=== PATIENT | female | born 1975 | race Caucasian/White ===

== ENCOUNTER 2020-03-09 15:43 | Emergency (ER) | payer SELFPAY ==
[2020-03-09 15:45] VITALS: BP 119/72; PULSE 96; RESP 18; TEMP 36.3; O2SAT 98; BMI 25.9
--- NOTE | 2020-03-09 16:04 | EKG12_ITS ---
Test Reason : LEFT ARM PAIN Blood Pressure : / mmHG Vent. Rate : 084 BPM Atrial Rate : 084 BPM P-R Int : 104 ms QRS Dur : 088 ms QT Int : 378 ms P-R-T Axes : 072 053 064 degrees QTc Int : 446 ms Sinus rhythm with short OK Otherwise normal ECG Confirmed by ISABEL ADAMSON, ZI ([id number]), acquisition editor HÉCTOR BRITTON ([id number] on 03/14/2020 9:35:20 AM Referred By: Confirmed By:ZI HALL MD
--- NOTE | 2020-03-09 16:26 | ED.VIS.GEN ---
History of Present Illness Informant: Patient Onset: Days - 3 days ago Context: Sudden Onset Timing: Continuous Quality: Sharp Location: Left anterior ribs Current Severity: Severe Maximum Severity: Severe Worsened by: Movement and coughing Relieved by: Nothing Associated Symptoms: Denies Narrative: 44-year-old female who denies any significant past medical history but is a daily smoker presents to the emergency department complaining of left anterior rib pain. Pain started suddenly 3 days ago after a coughing episode. She has had continued pain. She has a history of rib fractures on this side years ago. She is not short of breath. She is not lightheaded or dizzy. Denies hemoptysis. Denies trauma. Denies abdominal pain nausea vomiting or diarrhea. Denies any recent travel or surgery or history of DVT or PE. She is not on control pills. She is no longer coughing she denies sore throat or fevers lost of taste or smell or myalgias. Denies sick contacts Prior similar symptoms: Yes Recent Illness/Hospitalization: No <Adan Weaver - Last Filed: 03/09/20 17:12> <Anton Fenton - Last Filed: 03/09/20 21:59> Chief Complaint: Chest Other Past Medical History Prior records reviewed: Yes Past Medical History: None Surgical History: hysterectomy Lives: With Family Smoking Status: Current every day smoker Alcohol: Occasional Drugs: None <Adan Weaver - Last Filed: 03/09/20 17:12> <Anton Fenton - Last Filed: 03/09/20 21:59> - Allergies and Home Meds Allergies/Adverse Reactions: Allergies codeine Allergy (Verified 03/09/20 15:44) Hives Morpholine Analogues Allergy (Verified 03/09/20 15:44) Hives Primary Care Physician: Alonso Larsen STORAGE SPECIALIST, STORAGE SPECIALIST-C [Primary Care Provider] - 3-5 Days Review of Systems All systems negative except as indicated General: Denies: Chills, Fever, Sweats Eyes: Denies: Visual changes - bilaterally, Diplopia ENT: Denies: Rhinorrhea, Sore throat Cardiovascular: Reports: - - Left rib pain. Denies: Chest pain, Palpitations Respiratory: Denies: Dyspnea, Cough, Dyspnea on exertion Gastrointestinal: Denies: Abdominal pain, Nausea, Vomiting, Diarrhea, Melena, Hematochezia Genitourinary: Denies: Dysuria, Hematuria, Frequency Musculoskeletal: Denies: Back pain, Extremity Pain Skin: Denies: Rash, Wounds Neurological: Denies: Headache, Weakness, Numbness <Adan Weaver - Last Filed: 03/09/20 17:12> Physical Exam Vital Signs/Narrative: Vital Signs Temp Pulse Resp BP Pulse Ox 03/09/20 15:45 97.4 F L 96 18 119/72 98 Inital Vital Signs reviewed: Yes General: Well nourished, Well developed, No Acute Distress Head: Normocephalic, Atraumatic Eyes: Perrl, EOMI ENT: Moist mucous membranes, No rhinorrhea Neck: Supple, Nontender Cardiovascular: Regular rate, Regular rhythm, No murmurs Respiratory: No distress, CTA bilaterally, Chest tenderness - Left anterior ribs are tender on palpation. Normal inspection of the skin without swelling or bruising. No deformities. No crepitus is palpated. Abdomen: Soft, Nontender, Nondistended, Normal bowel sounds Back: Nontender, Normal Inspection, - - Cervical lumbar and thoracic spine all nontender on palpation Extremities: Nontender, No edema. Negative for: Tenderness, Edema, Calf Tenderness Skin: Normal color, No rash Neurological: Alert, Oriented x3, Cranial nerves II-XII grossly intact, Normal Strength, Normal Sensation, Normal Gait Psychological: Normal affect, Normal Mood <Adan Weaver - Last Filed: 03/09/20 17:12> Diagnostic/Tx/Re-eval Impressions Ribs w/Chest X-Ray 03/09/20 16:34 IMPRESSION: RIBS: Normal x-ray examination of the ribs. CHEST: Normal x-ray examination of the chest. Electronically Signed: Magaly Schaefer MD at 16:51 EDT , Service support , 03/09/20 16:34 Xray Ribs [Ribs Uni Min 3V w/PA Chest] [RAD] Stat - EKG Initial EKG Interpretation: Sinus Rhythm, No Acute Injury Pattern Prior: No Prior - Medical Decision Making Patient was given a Percocet for pain. Chest x-ray with a left-sided rib series shows no acute findings. Patient was reassured. Patient has normal stable vital signs. They did obtain an EKG out in triage and her EKG showed sinus rhythm rate of [address] segment or T wave changes. Patient will be discharged home with a prescription for Lidoderm patch. She will continue to alternate Tylenol and ibuprofen. She was given return precautions and a primary care physician to follow-up with. <Adan Weaver - Last Filed: 03/09/20 17:12> - Medical Decision Making Agree with above assessment and plan by AAKASH. I did evaluate the patient. She is in no acute distress. Work-up did not reveal any significant abnormality. Will recommend Lidoderm patches. Symptomatic treatment at home. She is to follow-up with her PCP. Warning signs and symptoms for which to return are reviewed. She understands and is agreeable this plan. Patient discharged home in stable condition. <Anton Fenton - Last Filed: 03/09/20 21:59> ED Disposition <Adan Weaver - Last Filed: 03/09/20 17:12> <Anton Fenton - Last Filed: 03/09/20 21:59> - Plan for ED Patient: Disposition: Home or Assisted Living Diagnosis: Rib pain on left side Instructions: ED CHEST PAIN [place] Prescriptions: Lidocaine [Lidoderm Patch] 1 patch TOPICAL DAILY #5 patch Prescription Printed Referrals: Alonso Larsen STORAGE SPECIALIST, STORAGE SPECIALIST-C [Primary Care Provider] - 3-5 Days
[2020-03-09] MEDS: oxyCODONE 5 MG Tablet PO (16:30)
--- NOTE | 2020-03-09 16:34 | RAD_ITS ---
STUDY: X-RAY - UNILATERAL RIBS ( LEFT ) WITH CHEST REASON FOR EXAM: Female, 44 years old. LEFT RIB PAIN AFTER FALLING SYLVAIN TECHNIQUE - RIBS: 4 view(s) of the ribs. TECHNIQUE - CHEST: 1 view COMPARISON: None. FINDINGS - RIBS: Normal visualized ribs without a demonstrated fracture. FINDINGS - CHEST: The lungs are clear and expanded. There is no demonstrated pleural abnormality. Normal size heart. Normal mediastinum and elise. Normal visualized pulmonary arteries. Normal visualized aortic arch and descending thoracic aorta. Normal visualized thoracic spine. Normal visualized ribs, clavicles, and shoulders. There is no demonstrated abnormality of the visualized soft tissue structures of the upper abdomen. RAD/Ribs Uni Min 3V w/PA Chest IMPRESSION: RIBS: Normal x-ray examination of the ribs. CHEST: Normal x-ray examination of the chest. Electronically Signed: Magaly Schaefer MD at 16:51 EDT , Service support ,
[2020-03-09 17:38] VITALS: BP 110/69; PULSE 78; RESP 16; O2SAT 98
--- NOTE | 2020-03-09 17:39 | ED.RN ---
REVIEWED D/C INSTRUCTIONS, FOLLOW UP CARE, PRESCRIPTION, AND S/S THAT WOULD WARRANT A RETURN TO THE ED WITH PT. PT VERBALIZED AN UNDERSTANDING AND DENIES FURTHER QUESTIONS FOR THIS RN. PT SKIN P/W/D, RESP EVEN AND UNLABORED, PT A&O X 3, NO DISTRESS NOTED. PT AMBULATED OUT OF ED, GAIT STEADY.
== END 2020-03-09 17:42 | disposition home or self-care (01) ==
PROVIDERS: Emergency Provider Physician Assistant Medical; PCP Nurse Practitioner Family
DX: R07.81 Pleurodynia (principal); F17.200 Nicotine dependence, unspecified, uncomplicated
CPT/HCPCS: 71101; 93005; 99282

== ENCOUNTER 2020-11-21 18:43 | Emergency (ER) | payer BC, SELFPAY ==
[2020-11-21 18:44] VITALS: BP 138/85; PULSE 88; RESP 18; TEMP 37.1; O2SAT 98; BMI 27.1
--- NOTE | 2020-11-21 18:57 | EX.ED.DYSGE1 ---
HPI History of Present Illness Chief Complaint: Constipation Narrative Narrative: Patient presents with constipation. She is 7 days after laparoscopic cholecystectomy. She has some abdominal distention but her pain is significantly improved. She has no fever or chills she has no back pain. She has tried some stool softeners and enemas. No urinary symptoms. No nausea or vomiting. PFSH PFSH Home Medications lidocaine 1 patch TOPICAL DAILY #5 patch 03/09/20 [Rx Last Taken Unknown] Allergy/AdvReac Type Severity Reaction Status Date / Time codeine Allergy Hives Verified 03/09/20 15:44 Morpholine Analogues Allergy Hives Verified 03/09/20 15:44 morphine AdvReac Other Verified 11/21/20 18:46 Surgical History (Updated 11/21/20 @ 18:49 by Lindsey Smith) History of cholecystectomy Social History Smoking Status: Current every day smoker tobacco type: cigarettes ROS ROS ED ROS Narrative Past medical history: Reviewed, includes recent cholecystectomy Medications: Reviewed Social history: Noncontributory Review of systems: All systems negative except as indicated General: No fever Cardiovascular: No chest pain Respiratory: No shortness of breath or cough Gastrointestinal: Constipation as in HPI, otherwise minimal abdominal pain. No nausea or vomiting. Genitourinary: No dysuria Musculoskeletal: Denies myalgias no difficulty with ambulation Skin: No rash Neurological: No memory loss, confusion or any focal weakness Hematologic: No easy bleeding or easy bruising EXAM Physical Exam Narrative Exam Narrative: Physical exam General: Appears somewhat uncomfortable ENT: Moist mucous membranes Neck: Supple, Nontender, No lymphadenopathy Cardiovascular: Regular rate, Regular rhythm Respiratory: No distress, CTA bilaterally Abdomen: Soft, slightly distended but she does have bowel sounds. Minimal tenderness on palpation. The incisions from laparoscopy are clean dry and intact without any signs of infection. Back: Nontender, Normal Inspection. Negative for: CVA tenderness Extremities: Nontender, No edema Skin: Normal color, No rash Neurological: Alert, Normal Strength, Normal Sensation Psychological: Normal affect Const Vital Signs: 11/21/20 18:44 Temperature 98.7 F Temperature Source Temporal Pulse Rate 88 Respiratory Rate 18 Blood Pressure 138/85 H Blood Pressure Mean 102 Pulse Ox 98 Oxygen Delivery Method Room Air MDM MDM MDM Narrative Medical decision making narrative: Patient is found to have constipation on x-ray, she will be treated with GoLYTELY for home. Radiography Diagnostic Testing: KUB interpreted by emergency doctor shows nonspecific bowel gas pattern, no evidence of bowel obstruction. There is however quite a bit of constipation. Discharge Plan Triage Chief Complaint: Constipation ED Provider: Rickey Varela Dx/Rx/DC Orders Clinical Impression: Constipation Instructions: ED Constipation (Adult) Prescriptions: No Action lidocaine 1 PATCH patch 1 patch topical DAILY Qty: 5 RF: 0 Primary Care Provider: Alonso Larsen NP Referrals: Alonso Larsen CUSTOMER EXPERIENCE STRATEGIST, CUSTOMER EXPERIENCE STRATEGIST-C [Primary Care Provider] - 2 Days Disposition Disposition: Home, self care
--- NOTE | 2020-11-21 19:08 | RAD_ITS ---
HISTORY: constipation EXAMINATION/TECHNIQUE: XR Abdomen 1 View: COMPARISON: None FINDINGS: LINES AND TUBES: None. BOWEL GAS PATTERN: Non-obstructive. Moderate colonic fecal retention. FREE AIR: Not assessed on a single supine view. ORGANOMEGALY: Not seen. CALCIFICATIONS: No abnormal calcifications observed. LOWER CHEST: No acute pathology. BONES AND SOFT TISSUES: No acute pathology. Multiple surgical clips project over the right inguinal region. RAD/Abdomen Single View IMPRESSION: Non-obstructive bowel gas pattern. Moderate colonic fecal retention. at 1932 Reported and signed by: Blade Crum MD Electronically Signed: Blade rCum MD at 19:31 EDT Tel , Service support ,
[2020-11-21] MEDS: Electrolyte Solution/Peg's 4000 ML PO (19:51)
[2020-11-21 19:52] VITALS: RESP 16
== END 2020-11-21 19:54 | disposition home or self-care (01) ==
PROVIDERS: Emergency Provider Emergency Medicine; PCP Nurse Practitioner Family
DX: K59.00 Constipation, unspecified (principal); F17.210 Nicotine dependence, cigarettes, uncomplicated; Z90.49 Acquired absence of other specified parts of digestive tract
CPT/HCPCS: 74018; 99282

== ENCOUNTER 2021-02-12 06:58 | Emergency (ER) | payer BC, SELFPAY ==
[2021-02-12 06:59] VITALS: BP 115/72; PULSE 78; RESP 16; TEMP 36.2; O2SAT 100; BMI 26.4
--- NOTE | 2021-02-12 07:12 | EDS_ITS ---
HPI History of Present Illness Chief Complaint: Flank Pain Detail of Chief Complaint: Right lower abdominal and flank pain that started yesterday Informant: patient Narrative Narrative: Patient presents to the emergency department complaint of right lower abdominal pain that radiates to the right flank. Patient states the pain came on suddenly. Patient states that she started having blood in her urine. She denies dysuria although feels some pressure in her lower abdomen when she urinates. She is never had symptoms like this before. She has had some mild nausea but no vomiting. She denies any fevers. Patient otherwise has no si gnificant medical history. Prior similar symptoms: No PFSH PFSH Home Medications NK 02/12/21 [History Last Taken Unknown] phenazopyridine [Pyridium] 200 mg PO TID #10 tab 02/12/21 [Rx Last Taken Unknown] sulfamethoxazole-trimethoprim 1 tab PO BID #14 tablet 02/12/21 [Rx Last Taken Unknown] Allergy/AdvReac Type Severity Reaction Status Date / Time codeine Allergy Hives Verified 02/12/21 06:58 Morpholine Analogues Allergy Hives Verified 02/12/21 06:58 morphine AdvReac Other Verified 02/12/21 06:58 Surgical History (Updated 02/12/21 @ 07:00 by Bri Negron) History of cholecystectomy History of hysterectomy Social History Smoking Status: Current every day smoker tobacco type: cigarettes ROS ROS ED Constitutional Constitutional ED: Reports systems reviewed and no addt'l complaints, except as documented; Denies body ache(s), change in weight or chills Eyes Eyes: Denies acute decrease in peripheral vision, change in vision, double vision or loss of vision ENT ENT ED: Reports none; Denies ear pain, lip swelling, loss taste/smell, neck pain, otalgia or sore throat Cardiovascular Cardiovascular: Reports none; Denies abdominal pain, chest pain with activity, leg edema, lightheadedness, palpitations, rapid heart rate or syncope Respiratory/Chest Respiratory/Chest: Reports none; Denies change in mental status, dry cough, dyspnea, hemoptysis, shortness of breath at rest or shortness of breath with exertion Gastrointestinal Gastrointestinal: Reports none, abdominal pain and nausea; Denies change in stool character, diarrhea, hematemesis, hematochezia, melena, rectal bleeding or vomiting Genitourinary Genitourinary ED: Reports none and hematuria; Denies abdominal discomfort, anuria, dysuria, genital pain or polyuria Musculoskeletal Musculoskeletal: Reports none; Denies arthralgias, back pain, difficulty walking, extremity pain, muscle weakness or myalgias Integumentary Reports none; Denies abscess or rash Neurologic Neurologic: Reports none; Denies abnormal gait, confusion, focal weakness, frequent falls, headache(s), loss of vision, numbness, paresthesias, radicular pain, vertigo or weakness Psychiatric Psychiatric: Reports systems reviewed and no addt'l complaints, except as documented and none; Denies behavioral changes, confusion, difficulty concentrating, hallucinations, suicidal ideation, tactile hallucinations or visual hallucinations Endocrine Endocrinology: Denies none, cold intolerance, excessive sweating, fatigue or heat intolerance Hematologic/Lymphatic Hematologic/Lymphatic: Reports none; Denies anemia, easy bleeding or easy bruising Allergic/Immunologic Allergic/Immunologic ED: Denies as per HPI, none, lip swelling, mouth swelling, throat swelling, tongue swelling or hives EXAM Physical Exam Const Vital Signs: 02/12/21 06:59 Temperature 97.1 F L Temperature Source Temporal Pulse Rate 78 Respiratory Rate 16 Blood Pressure 115/72 Blood Pressure Mean 86 Pulse Ox 100 Oxygen Delivery Method Room Air Positive well nourished and well developed General Appearance ED: well developed and NAD HEENT Reports TM's clear and moist mucous membranes normocephalic and atraumatic; Negative for trauma or tenderness Tympanic Membrane ED: Yes TM's clear Eyes PERRL and EOMs intact bilaterally General Eye ED: Negative for pale conjunctiva or scleral icterus Neck no lymphadenopathy, supple and no JVD General: Negative for tenderness Chest Wall inspection of chest normal and palpation of chest normal Chest: Negative for tenderness Resp normal respiratory effort and clear to auscultation bilaterally Effort and Inspection: Negative for respiratory distress or pain with movement Auscultation: Negative for rhonchi, wheezes or diminished lung sounds Cardio regular rate, regular rhythm, S1 normal heart sound, S2 normal heart sound and no murmurs Peripheral Pulses: pulses 2+ throughout GI soft to palpation, non-distended and no masses GI Narrative: Patient has tenderness palpation over right lower quadrant with some guarding. She got tenderness over the suprapubic region as well. There is no rebound, rigidity, or peritoneal signs. No masses palpated. Mild CVA tenderness on the right. Palpation: tender and guarding Back/Spine no CVA tenderness and no thoracic nor lumbar tenderness Extremity normal to inspection General Extremety ED: Negative for edema General Extremity: Negative for edema Neuro oriented x3, CN's II-XII intact bilaterally, no sensory deficits noted and gait normal Sensorium / Orientation: awake, alert, oriented to person, oriented to place and oriented to time Motor Exam: strength 5/5 throughout and strength abnormal Psych mental status grossly normal Skin no rashes or lesions noted and no wounds MDM MDM MDM Narrative Medical decision making narrative: Patient was treated with Toradol on arrival and she had good pain relief with that her currently rates her pain about a 5 out of 10. Patient believes she may have passed a small kidney stone when she last urinated. On CT there was evidence of some mild right ureteral distention and some thickening of the bladder wall which may be consistent with recently passed kidney stones or UTI. Patient will be treated with Bactrim and Pyridium. She will stick ibuprofen or Tylenol for discomfort. She is advised to return if worsening pain, fever, vomiting, or condition should worsen anyway. Patient to follow-up with primary care physician in 3 to 5 days. Lab Data Attestation: I reviewed the patient's lab results. Labs: Laboratory Results - last 24 hr 02/12/21 02/12/21 02/12/21 07:00 07:00 07:30 WBC 13.6 H RBC 4.70 Hgb 13.7 Hct 42.8 MCV 91.1 MCH 29.1 MCHC 32.0 RDW Std Deviation 47.0 H RDW Coeff of Dino 13.9 Plt Count 303 MPV 10.6 Immature Gran % (Auto) 0.400 Neut % (Auto) 73.0 H Lymph % (Auto) 18.2 L [place] % (Auto) 6.6 Eos % (Auto) 1.4 Baso % (Auto) 0.4 Absolute Neuts (auto) 10.0 H Absolute Lymphs (auto) 2.48 Nucleated RBC % 0 Sodium 137 Potassium 4.9 Chloride 108 H Carbon Dioxide 25.0 Anion Gap 4 L BUN 14 Creatinine 0.64 Estim Creat Clear Calc 97.78 Est GFR (MDRD) Af Amer 128 Est GFR (MDRD) Non-Af 106 BUN/Creatinine Ratio 21.9 H Glucose 91 Calcium 9.3 Urine Color Yellow Urine Clarity Cloudy Urine pH 7.0 Ur Specific [place] 1.010 Urine Protein 30 H Urine Glucose (UA) Normal Urine Ketones Negative Urine Occult Blood 250 H Urine Nitrite Negative Urine Bilirubin Negative Urine Urobilinogen Normal Ur Leukocyte Esterase 500 H Urine RBC 5-10 SEEN Urine WBC 10-25 SEEN Ur Squamous Epith Cells 0-5 SEEN Urine Bacteria 2+ Urine Mucus 0 SEEN Radiography Diagnostic Testing: Radiology Impression Abdomen/Pelvis CT 02/12/21 07:12 IMPRESSION: Mild right ureter distention without obstructing stone (consider recently passed stone versus ascending urinary tract infection) Mild urinary bladder with thickening (consider uncomplicated cystitis; correlate urinalysis) Minimal nonspecific basilar groundglass airspace disease/congestion Additional nonemergent findings, as above Electronically Signed: Jimmy Escobar DO at 8:16 EDT Tel , Service support , Discharge Plan Triage Chief Complaint: Flank Pain ED Provider: Aislinn Kaminski Dx/Rx/DC Orders Clinical Impression: UTI (urinary tract infection), Kidney stone Instructions: Urinary Tract Infections in Women, ED Kidney Stone, Passed Prescriptions: New phenazopyridine [Pyridium] 200 MG tablet 200 mg PO TID Qty: 10 RF: 0 sulfamethoxazole-trimethoprim [sulfamethoxazole-trimethoprim] 1 TABLET tablet 1 tab PO BID Qty: 14 RF: 0 No Action NK RF: 0 Primary Care Provider: Alonso Larsen NP Referrals: Alonso Larsen NP, LANDS RESOURCE MANAGER-C [Primary Care Provider] - 3-5 Days Disposition Disposition: Home, Self Care
--- NOTE | 2021-02-12 07:12 | CT_ITS ---
STUDY: CT ABDOMEN AND PELVIS WITHOUT CONTRAST REASON FOR EXAM: Female, 45 years old. Pain RADIATION DOSAGE (If Supplied By Facility): CTDIvol = ( 7.42 ) mGy, DLP = ( 383.26 ) mGycm TECHNIQUE: Transaxial images were obtained from the dome of the diaphragm to the symphysis pubis without oral contrast, and without intravenous contrast. Sagittal and coronal images were reconstructed. Individualized dose optimization techniques were used for this CT. COMPARISON: None. FINDINGS: Lung bases: Early groundglass airspace disease/congestion at the lung bases (axial image 1 series 2). Mild atelectasis/scarring. COPD. Heart: Unremarkable. Liver: Unremarkable. Gallbladder/biliary ducts: Cholecystectomy. No acute process. Pancreas: Unremarkable. Spleen: Unremarkable. Adrenal glands: Mild adrenal hyperplasia. Kidneys/ureters/bladder: Minimal urinary bladder wall thickening. Bilateral symmetric noncontrast renal parenchyma. Minimal right ureteral distention. Normal left ureter. Uterus/adnexa: Physiologic appearance. Large bowel/small bowel: No acute large bowel or small bowel process. Appendix: Unremarkable (axial image 104 series 2). Gastroesophageal junction/stomach: Unremarkable. Retroperitoneum/lymph nodes: No intra-abdominal free air. No ascites. No pathologically enlarged lymph nodes. Vascular: Vascular calcifications. No aneurysm. Osseous structures: Degenerative changes. No acute process. Subcutaneous/soft tissues: Surgical clips at the right inguinal region. No acute process. CT/Abdomen/Pelvis without Cont IMPRESSION: Mild right ureter distention without obstructing stone (consider recently passed stone versus ascending urinary tract infection) Mild urinary bladder with thickening (consider uncomplicated cystitis; correlate urinalysis) Minimal nonspecific basilar groundglass airspace disease/congestion Additional nonemergent findings, as above Electronically Signed: Jimmy Escobar DO at 8:16 EDT Tel , Service support ,
[2021-02-12 07:22] LABS: Absolute Lymphocyte Count 2.48 X10^3/uL (0.83-4.51); Basophil# 0.05 X10^3/uL; Basophil% 0.4 % (0-1); Eosinophil# 0.19 X10^3/uL; Eosinophils% 1.4 % (0-5); Hematocrit 42.8 % (37-47); Hemoglobin 13.7 g/dL (12.0-15.0); Lymphocyte # 2.48 X10^3/ul (0.83-4.51); Lymphocyte % 18.2 % (19-41); Mean Corpuscular Hgb 29.1 pg (27.0-32.0); Mean Corpuscular Volume 91.1 fL (81-99); Mean Platelet Vol. 10.6 fl (6.2-12.0); Monocyte% 6.6 % (0-10); NRBC Flagged by Analyzer 0 % (0-5); Neutrophil # 9.96 X10^3/uL (2.7-7.7); Platelet Count 303 K/mm3 (150-450); RBC Distribution Width CV 13.9 % (11.6-14.6); White Blood Count 13.6 K/mm3 (4.4-11.0)
[2021-02-12] MEDS: Ketorolac 30 MG/ML Syringe IV (07:27)
[2021-02-12] MEDS: 0.9% Normal Saline 1,000 ML 125 ML IV (07:27)
[2021-02-12] MEDS: Ondansetron 4 MG/2 ML Vial IV (07:28)
[2021-02-12 07:33] LABS: Mucous, Urine 0 SEEN /hpf (<or=2+)
[2021-02-12 07:36] LABS: Color, Urine Yellow (Yellow); Glucose, Dipstick Normal (Normal); Ketone-Dipstick Negative (Negative); Leukocyte Esterase-Dipstick 500 /ul (Negative); Nitrite-Dipstick Negative (Negative); Occult Blood-Urine 250 /ul (Negative); Protein-Dipstick 30 mg/dl (Negative); Urine Bilirubin Dipstick Negative (Negative); Urine Clarity Cloudy (Clear); Urine Urobilinogen Normal (Normal)
[2021-02-12 07:39] LABS: Anion Gap 4 (5-15); BUN 14 mg/dL (7-18); BUN/Creat Ratio 21.9 RATIO (10-20); Calcium,Total 9.3 mg/dL (8.5-10.1); Chloride 108 mmol/L (98-107); Creatinine, Serum 0.64 mg/dL (0.55-1.02); EST Glomerular Filtration Rate 106 mL/min (>60); Est Glom Filt Rate - Afr Amer 128 mL/min (>60); Estimated Creatinine Clearance 97.78 ml/min; Glucose 91 mg/dL (74-106); Potassium 4.9 mmol/L (3.5-5.1); Sodium Level 137 mmol/L (136-145)
[2021-02-12 07:44] LABS: Bacteria 2+ /hpf (None Seen); Red Blood Cells-Urine 5-10 SEEN /hpf (0-5); Squamous Epithelial Cells - UA 0-5 SEEN /hpf (5-10); White Blood Cells 10-25 SEEN /hpf (0-5)
[2021-02-12] MEDS: Phenazopyridine 95 MG Tablet 190 MG PO (08:57)
[2021-02-12] MEDS: Smz/Tmp Ds Tablet 1 TABLET PO (08:57)
[2021-02-12 09:02] VITALS: BP 137/74; PULSE 80; RESP 16; O2SAT 99
== END 2021-02-12 09:04 | disposition home or self-care (01) ==
PROVIDERS: Emergency Provider Emergency Medicine; PCP Nurse Practitioner Family
DX: N39.0 Urinary tract infection, site not specified (principal); N20.0 Calculus of kidney; F17.210 Nicotine dependence, cigarettes, uncomplicated
CPT/HCPCS: 74176; 80048; 81001; 85025; 87077; 87086; 87088; 87186; 96361; 96374; 96375; 99284; J7030; A4216; J2405

== ENCOUNTER 2021-07-24 22:05 | Emergency (ER) | payer BC, SELFPAY ==
[2021-07-24 22:06] VITALS: BP 122/65; PULSE 77; RESP 15; TEMP 36.1; O2SAT 98; BMI 24.3
--- NOTE | 2021-07-24 22:19 | EDS_ITS ---
HPI History of Present Illness Chief Complaint: Flank Pain Informant: patient Narrative Narrative: 46-year-old female presenting to the emergency room with right-sided abdominal pain. Patient states that all week long she has had the flu. She has had intermittent fevers nausea vomiting diarrhea. She was tested for Covid yesterday and states that was negative told that she most likely had the flu. She denies any cough rhinorrhea or headache. She states that the pain on her right side is intensifying and goes to the flank. Scribes it as sharp and stabbing but also dull. She was able to eat dinner about 3 hours prior to arrival last had something to drink within the last 30 minutes. Pain is sometimes worse with movement and certainly worse with touch PFSH [facility] Medical History (Updated 07/25/21 @ 00:[address] Austyn Sharma DO) Kidney stone Home Medications meclizine 25 mg tablet 25 mg PO BID PRN #10 tab 07/23/21 [Rx Last Taken Unknown] ondansetron HCl 8 mg tablet 8 mg PO Q12H PRN #14 tab 07/23/21 [Rx Last Taken Unknown] dicyclomine 20 mg PO TIDAC #20 capsule 07/24/21 [Rx Last Taken Unknown] hydrocodone-acetaminophen 1 tab PO Q6H PRN PRN 3 Days #12 tablet 07/24/21 [Rx Last Taken Unknown] Allergy/AdvReac Type Severity Reaction Status Date / Time codeine Allergy Hives Verified 07/24/21 22:10 Morpholine Analogues Allergy Hives Verified 07/24/21 22:10 morphine AdvReac Other Verified 07/24/21 22:10 Surgical History History of cholecystectomy History of hysterectomy Social History (Updated 07/24/21 @ 22:[address] Austyn Sharma DO) Smoking Status: Current every day smoker tobacco type: cigarettes substance use type: does not use ROS ROS ED Constitutional Constitutional ED: Reports fever(s); Denies chills or weight loss Eyes Eyes: Denies change in vision or diplopia ENT ENT ED: Denies ear pain, rhinorrhea or sore throat Cardiovascular Cardiovascular: Denies chest pain, orthopnea, palpitations or racing heartbeat Respiratory/Chest Respiratory/Chest: Denies cough, dyspnea or orthopnea Gastrointestinal Gastrointestinal: Reports abdominal pain, diarrhea, nausea and vomiting Genitourinary Genitourinary ED: Denies dysuria, hematuria or urinary frequency Musculoskeletal Musculoskeletal: Denies arthralgias or myalgias Integumentary Denies abscess or rash Neurologic Neurologic: Denies headache(s) or weakness Psychiatric Psychiatric: Denies anxiety, depression, suicidal ideation or suicidal thoughts Endocrine Endocrinology: Denies polydipsia, polyphagia or polyuria Allergic/Immunologic Allergic/Immunologic ED: Denies mouth swelling, tongue swelling or urticaria EXAM Physical Exam Const Vital Signs: 07/24/21 22:06 Temperature 97.0 F L Temperature Source Temporal Pulse Rate 77 Respiratory Rate 15 Blood Pressure 122/65 H Blood Pressure Mean 84 Pulse Ox 98 Oxygen Delivery Method Room Air Positive well nourished and well developed General Appearance ED: well developed HEENT Reports normocephalic, head/scalp atraumatic, TM's clear and moist mucous membranes Negative for trauma Tympanic Membrane ED: Yes TM's clear Eyes PERRL and EOMs intact bilaterally Neck no lymphadenopathy, supple and no JVD Resp normal respiratory effort and clear to auscultation bilaterally Cardio regular rate, regular rhythm and no murmurs GI GI Narrative: Diffusely tender to palpation Auscultation: normoactive bowel sounds Palpation: soft Back/Spine no CVA tenderness and normal ROM Extremity normal to inspection General Extremety ED: Negative for edema General Extremity: Negative for edema Neuro oriented x3 and CN's II-XII intact bilaterally Sensorium / Orientation: alert Motor Exam: strength 5/5 throughout Psych mental status grossly normal Mood & Affect: Negative for depressed or tearful Skin no rashes or lesions noted and no wounds MDM MDM MDM Narrative Medical decision making narrative: Basic labs showed a white count of 8 CMP glucose 113 liver enzymes alk phos 121. Urinalysis no overt infection to 10 red cells 1+ bacteria but negative nitrates negative leukocyte esterase and 0-[address] of the pelvis did not demonstrate anything to explain the patient's pain. At this point patient had received Dilaudid Zofran and Toradol. She will be discharged home with a prescription for [place] and Bentyl. She has Zofran at home already. Follow-up with primary care return if worsening or concerns Lab Data Attestation: I reviewed the patient's lab results. Labs: Laboratory Results - last 24 hr 07/24/21 07/24/21 07/24/21 22:20 22:20 22:20 WBC 8.0 RBC 4.66 Hgb 13.6 Hct 41.0 MCV 88.0 MCH 29.2 MCHC 33.2 RDW Std Deviation 43.7 RDW Coeff of [place] 13.5 Plt Count 285 MPV 9.8 Immature Gran % (Auto) 0.300 Neut % (Auto) 36.0 L Lymph % (Auto) 54.5 H [place] % (Auto) 6.2 Eos % (Auto) 2.4 Baso % (Auto) 0.6 Absolute Neuts (auto) 2.9 Absolute Lymphs (auto) 4.34 Nucleated RBC % 0 Sodium 139 Potassium 3.4 L Chloride 107 Carbon Dioxide 26.0 Anion Gap 6 BUN 11 Creatinine 0.79 Estim Creat Clear Calc 78.36 Est GFR (MDRD) Af Amer 99 Est GFR (MDRD) Non-Af 82 BUN/Creatinine Ratio 13.9 Glucose 113 H Calcium 9.1 Total Bilirubin 0.30 AST 6 L ALT 18 Alkaline Phosphatase 121 H Total Protein 6.9 Albumin 3.8 Globulin 3.1 Albumin/Globulin Ratio 1.2 Amylase 42 Urine Color Yellow Urine Clarity Clear Urine pH 6.0 Ur Specific [place] 1.025 Urine Protein 15 H Urine Glucose (UA) Normal Urine Ketones Negative Urine Occult Blood 150 H Urine Nitrite Negative Urine Bilirubin Negative Urine Urobilinogen Normal Ur Leukocyte Esterase Negative Urine RBC 5-10 SEEN Urine WBC 0-5 SEEN Ur Squamous Epith Cells 0-5 SEEN Urine Bacteria 1+ Urine Mucus 0 SEEN Radiography Diagnostic Testing: Clinical Impression(s) from Imaging Studies Abdomen/Pelvis CT 07/24/21 22:51 IMPRESSION: 1. No radiopaque stones or hydronephrosis is seen in either kidney. No visualized perinephric stranding. 2. Prior right inguinal hernia repair. Electronically Signed: Shemar Peterson MD at 23:36 EST Reading Location ID and State: [facility] / [place] , Service support , Discharge Plan Triage Chief Complaint: Flank Pain ED Provider: Austyn Sharma Dx/Rx/DC Orders Clinical Impression: Gastroenteritis, Abdominal pain Instructions: Abdominal Pain, ED Gastroenteritis, Viral (Adult) Prescriptions: New hydrocodone-acetaminophen [hydrocodone-acetaminophen] 1 TABLET tablet 1 tab PO Q6H PRN PRN (Reason: Pain) 3 Days Qty: 12 RF: 0 dicyclomine 10 MG capsule 20 mg PO TIDAC Qty: 20 RF: 0 No Action ondansetron HCl 8 mg tablet 8 mg PO Q12H PRN (Reason: nausea and vomiting) Qty: 14 RF: 0 meclizine 25 mg tablet 25 mg PO BID PRN (Reason: dizziness) Qty: 10 RF: 0 Primary Care Provider: Alonso Larsen NP Referrals: Alonso Larsen NP, [facility] [Primary Care Provider] - 3-5 Days if not improving Disposition Disposition: Home, Self Care
[2021-07-24] MEDS: HYDROmorphone 1 MG/ML Syringe IV (22:25)
[2021-07-24] MEDS: Ondansetron 4 MG/2 ML Vial IV (22:25)
[2021-07-24 22:29] LABS: Absolute Lymphocyte Count 4.34 X10^3/uL (0.83-4.51); Absolute Neutrophil Count 2.9 X10^3/uL (2.0-7.7); Basophil# 0.05 X10^3/uL; Basophil% 0.6 % (0-1); Eosinophil# 0.19 X10^3/uL; Eosinophils% 2.4 % (0-5); Hemoglobin 13.6 g/dL (12.0-15.0); Lymphocyte # 4.34 X10^3/ul (0.83-4.51); Lymphocyte % 54.5 % (19-41); Mean Corp Hgb Conc 33.2 g/dL (32-36); Mean Corpuscular Hgb 29.2 pg (27.0-32.0); Mean Platelet Vol. 9.8 fl (6.2-12.0); Monocyte# 0.49 X10^3/uL; Monocyte% 6.2 % (0-10); NRBC Flagged by Analyzer 0 % (0-5); Neutrophil # 2.87 X10^3/uL (2.7-7.7); Platelet Count 285 K/mm3 (150-450); RBC Distribution Width CV 13.5 % (11.6-14.6); RBC Distribution Width SD 43.7 fl (35.1-43.9); Red Blood Count 4.66 M/mm3 (4.2-5.4)
[2021-07-24 22:35] LABS: Mucous, Urine 0 SEEN /hpf (<or=2+)
[2021-07-24 22:37] LABS: Color, Urine Yellow (Yellow); Glucose, Dipstick Normal (Normal); Ketone-Dipstick Negative (Negative); Leukocyte Esterase-Dipstick Negative /ul (Negative); Nitrite-Dipstick Negative (Negative); Occult Blood-Urine 150 /ul (Negative); Protein-Dipstick 15 mg/dl (Negative); Specific Gravity, Urine 1.025 (1.002-1.030); Urine Bilirubin Dipstick Negative (Negative); Urine Clarity Clear (Clear); Urine Urobilinogen Normal (Normal)
[2021-07-24 22:43] LABS: Bacteria 1+ /hpf (None Seen); Red Blood Cells-Urine 5-10 SEEN /hpf (0-5); Squamous Epithelial Cells - UA 0-5 SEEN /hpf (5-10); White Blood Cells 0-5 SEEN /hpf (0-5)
[2021-07-24 22:46] LABS: ALB/GLOB Ratio 1.2 RATIO (0.9-2.4); AST(SGOT) 6 U/L (15-37); Alanine Aminotransfer ALT/SGPT 18 U/L (13-56); Albumin, Serum 3.8 g/dL (3.2-5.0); Alkaline Phosphatase 121 U/L (45-117); Amylase 42 U/L (25-115); Anion Gap 6 (5-15); BUN 11 mg/dL (7-18); BUN/Creat Ratio 13.9 RATIO (10-20); Calcium,Total 9.1 mg/dL (8.5-10.1); Chloride 107 mmol/L (98-107); Creatinine, Serum 0.79 mg/dL (0.55-1.02); EST Glomerular Filtration Rate 82 mL/min (>60); Est Glom Filt Rate - Afr Amer 99 mL/min (>60); Estimated Creatinine Clearance 78.36 ml/min; Globulin 3.1 g/dL (2.2-4.2); Glucose 113 mg/dL (74-106); Potassium 3.4 mmol/L (3.5-5.1); Protein, Total 6.9 g/dL (6.4-8.2); Sodium Level 139 mmol/L (136-145)
--- NOTE | 2021-07-24 22:51 | CT_ITS ---
STUDY: CT ABDOMEN AND PELVIS WITHOUT CONTRAST REASON FOR EXAM: Female, 46 years old. RIGHT FLANK PAIN WITH INCREASED URINATION, HX GB, HYSTERCTOMY, KS IN PAST RADIATION DOSAGE (If Supplied By Facility): CTDIvol = ( 6.23 ) mGy, DLP = ( 320.42 ) mGycm TECHNIQUE: Transaxial images were obtained from the dome of the diaphragm to the symphysis pubis without oral contrast, and without intravenous contrast. Sagittal and coronal images were reconstructed. Individualized dose optimization techniques were used for this CT. COMPARISON: CT of abdomen and pelvis dated February 12, 2021 FINDINGS: The visualized lung bases are unremarkable. The visualized portions of the heart are within normal limits. Normal liver. There are surgical clips in the gallbladder fossa consistent with a prior cholecystectomy. Normal spleen. Normal pancreas. Normal bilateral adrenal glands. Normal right kidney. Normal left kidney. No radiopaque stones or hydronephrosis is seen in either kidney. No visualized perinephric stranding. Normal visualized stomach. Normal small intestine. Normal colon. The appendix is visualized and appears normal. There is diffuse atherosclerotic calcification of the abdominal aorta, without a demonstrated aneurysm. Normal inferior vena cava. Normal retroperitoneum. Normal urinary bladder. There is absence of the uterus consistent with a prior hysterectomy. Normal abdominal wall. There are diffuse degenerative changes of the visualized lumbar spine. Surgical clips and chronic postoperative changes are seen in the right inguinal region around a small fat-containing inguinal hernia. CT/Abdomen/Pelvis without Cont IMPRESSION: 1. No radiopaque stones or hydronephrosis is seen in either kidney. No visualized perinephric stranding. 2. Prior right inguinal hernia repair. Electronically Signed: Shemar Peterson MD at 23:36 EST ,
[2021-07-25] MEDS: Ketorolac 30 MG/ML Syringe IV (00:06)
[2021-07-25 00:07] VITALS: BP 105/57; PULSE 57; RESP 18; O2SAT 97
== END 2021-07-25 00:18 | disposition home or self-care (01) ==
PROVIDERS: Emergency Provider Emergency Medicine; PCP Nurse Practitioner Family; Visit Provider Emergency Medicine
DX: K52.9 Noninfective gastroenteritis and colitis, unspecified (principal); F17.210 Nicotine dependence, cigarettes, uncomplicated; Z87.442 Personal history of urinary calculi
CPT/HCPCS: 74176; 80053; 81001; 82150; 85025; 87426; 87804; 96374; 96375; 99283; A4216; J2405

== ENCOUNTER 2021-10-06 20:31 | Emergency (ER) | payer BC, SELFPAY ==
[2021-10-06 20:31] VITALS: BP 120/62; PULSE 91; RESP 16; TEMP 36.2; O2SAT 98; BMI 23.3
--- NOTE | 2021-10-06 20:50 | CT_ITS ---
INDICATION: RLQ pain EXAMINATION: CT ABDOMEN AND PELVIS WITH CONTRAST - CT Abdomen And Pelvis W/ Contrast Injection TECHNIQUE: Helically acquired images were obtained of the abdomen and pelvis following IV contrast. A radiation dose optimization technique was used for this scan. IV Contrast dosage and agent: 100 mL of ISOVUE-370. Oral contrast: None. COMPARISON: None. FINDINGS: LOWER CHEST: Lung bases are clear. No cardiomegaly or pericardial effusion. LIVER: Homogeneous. No focal mass. GALLBLADDER AND BILIARY TREE: Surgically absent. No fluid in the gallbladder fossa. There is mild intrahepatic biliary ductal dilation. No extrahepatic biliary ductal dilation. PANCREAS: No focal cystic or solid mass. SPLEEN: Normal size without focal cystic or solid mass. ADRENAL GLANDS: No nodules. KIDNEYS, URETERS and BLADDER: Normal renal size and position. No mass. No hydronephrosis. Bladder is unremarkable. PERITONEUM: No ascites or free air. No other fluid collection. BOWEL: Normal appendix. No abnormally distended bowel loops or air fluid levels. No wall thickening or mass. No focal inflammatory changes. LYMPH NODES: No enlarged mesenteric or retroperitoneal lymph nodes. VESSELS: Normal aortic atherosclerosis without aneurysmal dilation or stenosis. REPRODUCTIVE ORGANS: Not visualized, likely absent. ABDOMINAL WALL: Surgical clips right inguinal region. No hernia. BONES: No lytic or blastic abnormality. CT/Abdomen/Pelvis W IV Cont ONLY IMPRESSION: Normal appendix. No intra-abdominal inflammatory changes. Mild intrahepatic biliary ductal dilation status post cholecystectomy and no intrahepatic biliary ductal dilation. This may potentially be within normal limits. Correlate clinically with laboratory values for evidence of obstructive biliary pattern. Post surgical changes right inguinal region. Electronically Signed: Tye Zamudio DO at 22:25 EDT ,
--- NOTE | 2021-10-06 20:51 | ED.VIS.GI ---
HPI HPI - GI History of Present Illness Chief Complaint: Abd Pain Informant: patient Abdominal Pain/Flank Pain Onset: Days (4) Context: Gradual Onset Timing: Continuous Quality: Aching Location: RLQ Current Severity: Severe Maximum Severity: Severe Worsened by: Car ride Relieved by: Nothing Nausea/Vomiting/Emesis GI Symptom: Positive for Nausea; Negative for Vomiting Diarrhea/Melena/Hematochezia GI Symptom: Positive for Diarrhea; Negative for Melena and Hematochezia Stool Quality: Positive for Loose; Negative for Black, Maroon and BRB per rectum Severity: Mild Associated Symptoms Associated Symptoms: Negative for Dysuria, Frequency and Hematuria Narrative Narrative: Patient has had gradually worsening pain in her right lower quadrant, seems like is been moving from her umbilicus toward the right lower quadrant and not time. Nausea, low-grade fevers, decreased appetite. Prior hysterectomy and cholecystectomy, no other abdominal surgeries. She denies any vomiting. Pain does not go into her back. PFSH PFSH Medical History Kidney stone Home Medications meclizine 25 mg tablet 25 mg PO BID PRN #10 tab 07/23/21 [Rx Last Taken Unknown] ondansetron HCl 8 mg tablet 8 mg PO Q12H PRN #14 tab 07/23/21 [Rx Last Taken Unknown] dicyclomine 20 mg PO Q4H PRN PRN #20 capsule 10/06/21 [Rx Last Taken Unknown] hydrocodone-acetaminophen 1 tab PO Q6H PRN PRN 3 Days #12 tablet 10/06/21 [Rx Last Taken Unknown] Allergy/AdvReac Type Severity Reaction Status Date / Time codeine Allergy Hives Verified 10/06/21 20:33 Morpholine Analogues Allergy Hives Verified 10/06/21 20:33 morphine AdvReac Other Verified 10/06/21 20:33 Surgical History History of cholecystectomy History of hysterectomy Social History Smoking Status: Current every day smoker tobacco type: cigarettes substance use type: does not use ROS ROS ED Constitutional Constitutional ED: Reports fever(s) and malaise; Denies chills Eyes Eyes: Denies change in vision or diplopia ENT ENT ED: Denies rhinorrhea or sore throat Cardiovascular Cardiovascular: Denies chest pain or palpitations Respiratory/Chest Respiratory/Chest: Denies cough or dyspnea Gastrointestinal Gastrointestinal: Reports abdominal pain and nausea; Denies diarrhea or vomiting Genitourinary Genitourinary ED: Denies dysuria or hematuria Musculoskeletal Musculoskeletal: Denies back pain or neck pain Integumentary Denies abscess or rash Neurologic Neurologic: Denies headache(s), paresthesias or weakness Psychiatric Psychiatric: Denies anxiety or suicidal thoughts EXAM Physical Exam Const Vital Signs: 10/06/21 20:31 10/06/21 21:13 Temperature 97.2 F L Temperature Source Temporal Pulse Rate 91 79 Respiratory Rate 16 12 Blood Pressure 120/62 124/79 H Blood Pressure Mean 81 94 Pulse Ox 98 96 Oxygen Delivery Method Room Air Room Air Positive well nourished and well developed General Appearance ED: well developed and NAD HEENT Reports moist mucous membranes normocephalic and atraumatic Eyes PERRL and EOMs intact bilaterally Neck full ROM and supple Resp normal respiratory effort and clear to auscultation bilaterally Cardio regular rate, regular rhythm and no murmurs GI non-distended GI Narrative: Very tender throughout right lower quadrant with localized rebound tenderness. Some voluntary guarding. Positive Rovsing, obturator, and psoas signs. Auscultation: normoactive bowel sounds Palpation: soft Back/Spine no CVA tenderness General Back: other FROM Extremity normal to inspection General Extremety ED: Negative for edema, pulses abnormal or tenderness General Extremity: Negative for edema or pulses abnormal Neuro oriented x3, CN's II-XII intact bilaterally and no sensory deficits noted Sensorium / Orientation: awake and alert Motor Exam: strength 5/5 throughout Skin no rashes or lesions noted and no wounds MDM MDM MDM Narrative Medical decision making narrative: Given patient's history and exam there was concern for acute appendicitis. However, her white blood count is only 11.4, there is no leftward shift or bandemia, and CT with IV contrast shows a normal appendix and no other acute inflammatory changes to suggest a cause for her pain. This could possibly be mesenteric adenitis with viral etiology although was not seen on CT. Urine is clean without signs of infection. She states on reevaluation she has had pains like this couple times a year for the last for 5 years. Could be some type of functional abdominal pain. She has a PCP with the [facility] but wants to switch to someone here in [place], so she was given further medication after morphine, in the form of Toradol and Bentyl and will be discharged home on something for pain. Lab Data Attestation: I reviewed the patient's lab results. Labs: Laboratory Results - last 24 hr 10/06/21 10/06/21 10/06/21 20:55 20:55 21:07 WBC 11.4 H RBC 4.37 Hgb 13.0 Hct 38.6 MCV 88.3 MCH 29.7 MCHC 33.7 RDW Std Deviation 43.8 RDW Coeff of [place]ino 13.5 Plt Count 282 MPV 9.6 Immature Gran % (Auto) 0.200 Neut % (Auto) 51.4 Lymph % (Auto) 40.0 [place] % (Auto) 5.9 Eos % (Auto) 2.1 Baso % (Auto) 0.4 Absolute Neuts (auto) 5.9 Absolute Lymphs (auto) 4.55 H Nucleated RBC % 0 Differential Comment SCANNED Sodium 141 Potassium 3.5 Chloride 110 H Carbon Dioxide 26.0 Anion Gap 5 BUN 13 Creatinine 0.62 Estim Creat Clear Calc 99.85 Est GFR (MDRD) Af Amer 132 Est GFR (MDRD) Non-Af 109 BUN/Creatinine Ratio 21.0 H Glucose 105 Calcium 9.2 Urine Color Straw Urine Clarity Clear Urine pH 6.0 Ur Specific [place] 1.010 Urine Protein Negative Urine Glucose (UA) Normal Urine Ketones Negative Urine Occult Blood 150 H Urine Nitrite Negative Urine Bilirubin Negative Urine Urobilinogen Normal Ur Leukocyte Esterase Negative Urine RBC 0-5 SEEN Urine WBC 0 SEEN Ur Squamous Epith Cells 0 SEEN Urine Bacteria 0 SEEN Urine Mucus 0 SEEN Radiography Diagnostic Testing: Clinical Impression(s) from Imaging Studies Abdomen/Pelvis CT 10/06/21 20:50 IMPRESSION: Normal appendix. No intra-abdominal inflammatory changes. Mild intrahepatic biliary ductal dilation status post cholecystectomy and no intrahepatic biliary ductal dilation. This may potentially be within normal limits. Correlate clinically with laboratory values for evidence of obstructive biliary pattern. Post surgical changes right inguinal region. Electronically Signed: Tye Zamudio DO at 22:25 EDT , Discharge Plan Triage Chief Complaint: Abd Pain ED Provider: Derian Bangura Dx/Rx/DC Orders Clinical Impression: Abdominal pain, RLQ Instructions: ED Abdominal Pain Unkn Cause Fem Prescriptions: Continued ondansetron HCl 8 mg tablet 8 mg PO Q12H PRN (Reason: nausea and vomiting) Qty: 14 RF: 0 meclizine 25 mg tablet 25 mg PO BID PRN (Reason: dizziness) Qty: 10 RF: 0 hydrocodone-acetaminophen 1 TABLET tablet 1 tab PO Q6H PRN PRN (Reason: Pain) 3 Days Qty: 12 RF: 0 Changed dicyclomine 10 MG capsule 20 mg PO Q4H PRN PRN (Reason: abdominal discomfort) Qty: 20 RF: 0 Primary Care Provider: Alonso Larsen [employer] Referrals: Doctor,Your [STAFF PHYSICIAN] - (See attached pamphlet for local primary care physicians to contact for follow-up) Disposition Disposition: Home, Self Care
[2021-10-06 21:05] LABS: Absolute Lymphocyte Count 4.55 X10^3/uL (0.83-4.51); Absolute Neutrophil Count 5.9 X10^3/uL (2.0-7.7); Basophil# 0.04 X10^3/uL; Basophil% 0.4 % (0-1); Eosinophil# 0.24 X10^3/uL; Eosinophils% 2.1 % (0-5); Hematocrit 38.6 % (37-47); Lymphocyte # 4.55 X10^3/ul (0.83-4.51); Mean Corp Hgb Conc 33.7 g/dL (32-36); Mean Corpuscular Hgb 29.7 pg (27.0-32.0); Mean Corpuscular Volume 88.3 fL (81-99); Mean Platelet Vol. 9.6 fl (6.2-12.0); Monocyte# 0.67 X10^3/uL; Monocyte% 5.9 % (0-10); NRBC Flagged by Analyzer 0 % (0-5); Neutrophil # 5.85 X10^3/uL (2.7-7.7); Neutrophil % 51.4 % (47-70); POSITIVE MORPHOLOGY YES; Platelet Count 282 K/mm3 (150-450); RBC Distribution Width CV 13.5 % (11.6-14.6); RBC Distribution Width SD 43.8 fl (35.1-43.9); Red Blood Count 4.37 M/mm3 (4.2-5.4); White Blood Count 11.4 K/mm3 (4.4-11.0)
[2021-10-06 21:13] VITALS: BP 124/79; PULSE 79; RESP 12; O2SAT 96
[2021-10-06 21:14] LABS: Bacteria 0 SEEN /hpf (None Seen); Mucous, Urine 0 SEEN /hpf (<or=2+); Squamous Epithelial Cells - UA 0 SEEN /hpf (5-10); White Blood Cells 0 SEEN /hpf (0-5)
[2021-10-06 21:17] LABS: Anion Gap 5 (5-15); BUN 13 mg/dL (7-18); Calcium,Total 9.2 mg/dL (8.5-10.1); Chloride 110 mmol/L (98-107); Creatinine, Serum 0.62 mg/dL (0.55-1.02); EST Glomerular Filtration Rate 109 mL/min (>60); Est Glom Filt Rate - Afr Amer 132 mL/min (>60); Estimated Creatinine Clearance 99.85 ml/min; Glucose 105 mg/dL (74-106); Potassium 3.5 mmol/L (3.5-5.1); Sodium Level 141 mmol/L (136-145)
[2021-10-06] MEDS: Ondansetron 4 MG/2 ML Vial IV (21:18)
[2021-10-06] MEDS: fentaNYL 100 MCG/2 ML Ampul 50 MCG IV (21:19)
[2021-10-06] MEDS: 0.9% Normal Saline 1,000 ML 125 ML IV (21:20)
[2021-10-06 21:22] LABS: Color, Urine Straw (Yellow); Glucose, Dipstick Normal (Normal); Ketone-Dipstick Negative (Negative); Leukocyte Esterase-Dipstick Negative /ul (Negative); Nitrite-Dipstick Negative (Negative); Occult Blood-Urine 150 /ul (Negative); Protein-Dipstick Negative (Negative); Urine Bilirubin Dipstick Negative (Negative); Urine Clarity Clear (Clear); Urine Urobilinogen Normal (Normal)
[2021-10-06 21:36] LABS: Differential Indicated SCAN CRITERIA MET
[2021-10-06 21:43] LABS: Red Blood Cells-Urine 0-5 SEEN /hpf (0-5)
[2021-10-06 22:09] LABS: Differential Comment SCANNED
[2021-10-06 22:54] VITALS: BP 111/67; PULSE 66; RESP 13
[2021-10-06] MEDS: Ketorolac 30 MG/ML Syringe IV (22:58)
[2021-10-06] MEDS: Dicyclomine 20 MG/2 ML Vial IM (22:58)
== END 2021-10-06 23:16 | disposition home or self-care (01) ==
PROVIDERS: Emergency Provider Emergency Medicine; PCP Nurse Practitioner Family; Visit Provider Emergency Medicine
DX: R10.31 Right lower quadrant pain (principal); F17.210 Nicotine dependence, cigarettes, uncomplicated; Z90.49 Acquired absence of other specified parts of digestive tract; Z90.710 Acquired absence of both cervix and uterus
CPT/HCPCS: 74177; 80048; 81001; 85025; 96361; 96372; 96374; 96375; 99282; J7030; A4216; J2405

== ENCOUNTER → 2021-11-08 | Outpatient (CLI) | payer BC, SELFPAY ==
--- NOTE | 2021-11-08 12:22 | BI_ITS ---
MAMMOGRAPHY - BILATERAL SCREENING REASON FOR EXAM: Female, 46 years old. Routine annual screening examination. PERTINENT HISTORY: Grandmother with breast cancer. TECHNIQUE: Digital bilateral breast frank (3D mammographic acquisition) in the CC and MLO projections. 2-D mediolateral oblique (MLO) and craniocaudad (CC) views of both breasts were obtained. CAD: Full Field Digital Mammography with Computer Added Detection was performed. COMPARISON: Screening mammogram from 03/16/2018. FINDINGS: Breast Composition: The breasts are heterogeneously dense, which may obscure small masses. There are no dominant masses or suspicious calcifications. There is a partially visualized lymph node in the left axilla on the MLO views that is incompletely characterized on this study and was not present on prior from 03/16/2018. Given unilateral finding and incomplete assessment, further assessment with ultrasound is recommended. BI/SCRN MAMM (CAD)W/FRANK BILAT IMPRESSION: Further imaging evaluation recommended, as described above. (E) Recall Side: Left Breast ASSESSMENT CATEGORY: BIRADS Category 0: Incomplete. Need additional imaging evaluation. A letter regarding these results will be sent to the patient by the facility within 30 days. Approximately 10% of breast cancers are not detected by mammography. A normal mammogram should not delay biopsy of a clinically suspicious abnormality. [id number] Electronically Signed: Russ Pandya, at 17:14 EDT ,
== END | disposition home or self-care (01) ==
LOC: OPBI 12:21
PROVIDERS: PCP Nurse Practitioner Family; Visit Provider Internal Medicine
DX: Z12.31 Encounter for screening mammogram for malignant neoplasm of breast (principal); Z80.3 Family history of malignant neoplasm of breast
CPT/HCPCS: 77063; 77067

== ENCOUNTER → 2021-11-19 | Outpatient (CLI) | payer BC, SELFPAY ==
--- NOTE | 2021-11-19 14:47 | US_ITS ---
STUDY: ULTRASOUND BREAST - LEFT REASON FOR EXAM: Female, 46 years old. Abnormal screening mammogram. TECHNIQUE: Axial and longitudinal images of the LEFT breast were performed with a high resolution ultrasound transducer. # OF IMAGES: 24 COMPARISON: Comparison is made with prior mammogram dated 11/08/2021. FINDINGS: LEFT Breast: The left axillary region was examined with ultrasound. Several benign-appearing lymph nodes are seen in the axilla. The largest measures 2.2 cm x 1 cm x 0.9 cm. US/Breast Limited Unilateral IMPRESSION: The mammographic abnormality corresponds to benign appearing left axillary lymph nodes. ASSESSMENT CATEGORY: BIRADS Category 2: Benign. A letter regarding these results will be sent to the patient by the facility within 30 days. Electronically Signed: Daniele Freed MD at 15:15 EDT ,
== END | disposition home or self-care (01) ==
PROVIDERS: PCP Nurse Practitioner Family; Visit Provider Internal Medicine
DX: N63.32 Unspecified lump in axillary tail of the left breast (principal)
CPT/HCPCS: 76642

== ENCOUNTER 2022-10-03 18:16 | Emergency (ER) | payer SELFPAY ==
[2022-10-03 18:17] VITALS: BP 137/74; PULSE 69; RESP 18; TEMP 36.4; O2SAT 97
--- NOTE | 2022-10-03 18:46 | CT_ITS ---
STUDY: CTA HEAD AND NECK WITH CONTRAST REASON FOR EXAM: Female, 47 years old. headache -- right neck pain rad to head RADIATION DOSAGE (If Supplied By Facility): CTDIvol = ( 28.37 ) mGy, DLP = ( 2842.46 ) mGycm TECHNIQUE: CT angiography was performed with a multi-detector CT scanner. Data acquisition was obtained from the skull base through the vertex following intravenous administration of IV 100mL Isovue-370. MIP images were reconstructed from the axial data set. Post-processing of the angiographic images was performed, with multiplanar reformation and 3D reconstruction. Individualized dose optimization techniques were used for this CT. COMPARISON: No relevant priors. FINDINGS: Normal bilateral petrous carotid arteries. Normal right cavernous carotid artery with a normal supraclinoid bifurcation. Normal left cavernous carotid artery with a normal supraclinoid bifurcation. Normal right A1 segments of the anterior cerebral artery. Normal left A1 segments of the anterior cerebral artery. There is non-visualization of the anterior communicating artery (ACOM). Normal bilateral A2 segments of the anterior cerebral arteries. Normal right M1 and M2 segments of the middle cerebral arteries, with a normal M1 bifurcation. Normal left M1 and M2 segments of the middle cerebral arteries, with a normal M1 bifurcation. There is non-visualization of the right posterior communicating artery (PCOM). There is non-visualization of the left posterior communicating artery (PCOM). Normal bilateral vertebral arteries. Normal basilar artery with a normal basilar bifurcation. The visualized bilateral superior cerebellar (SCA) arteries are normal. Normal bilateral P1, P2 and visualized P3 segments of the posterior cerebral arteries. There is no demonstrated aneurysm of the [place]. There is no demonstrated abnormality of the visualized brain. AORTIC ARCH: Normal visualized aortic arch. Normal origins of the brachiocephalic, left common carotid, and left subclavian arteries. RIGHT CAROTID ARTERIES: Normal right common carotid artery (CCA). Normal right common carotid bulb. Normal origin of the right internal carotid (ICA) artery without a hemodynamically significant stenosis. Normal visualized cervical portion of the right internal carotid artery. Normal origin of the right external carotid artery (ECA). LEFT CAROTID ARTERIES: Normal left common carotid artery (CCA). Normal left common carotid bulb. Normal origin of the left internal carotid (ICA) artery without a hemodynamically significant stenosis. Normal visualized cervical portion of the left internal carotid artery. Normal origin of the left external carotid artery (ECA). VERTEBRAL ARTERIES: Normal bilateral vertebral arteries. Calcified extra-axial mass left cortex measures 7.0 mm x 12 elevated in craniocaudal and transverse dimensions. CT/CTA Head AND Neck W/ Contrast IMPRESSION: Probable small meningioma near the vertex on the left otherwise Normal CTA Head and neck with contrast. Pending Final Proof Editing
--- NOTE | 2022-10-03 18:48 | CT_ITS ---
INDICATION: abdominal pain -- IV PO Contrast EXAMINATION: CT Abdomen And Pelvis W/ Contrast Injection TECHNIQUE: Helically acquired images were obtained of the abdomen and pelvis after IV contrast. A radiation dose optimization technique was used for this scan. IV Contrast dosage and agent: IV 100mL [id number] Oral contrast: None. COMPARISON: None. FINDINGS: Visualized lung bases: Groundglass opacities in the bilateral lung bases. Liver: Unremarkable Gallbladder: Surgically absent. Spleen: Unremarkable Pancreas: Unremarkable Adrenal Glands: Unremarkable Kidneys: Scattered too small to characterize subcentimeter hypodensities bilaterally. Vasculature: Mild scattered aortoiliac atherosclerotic calcifications. GI Tract: Unremarkable Lymphadenopathy: None Peritoneum: No ascites. Bladder: Unremarkable Reproductive organs: Status post hysterectomy. Bones/Soft tissues: Mild scattered degenerative changes of the visualized spine. Age indeterminate moderate compression deformity of T8. CT/Abdomen/Pelvis WITH Contrast IMPRESSION: Age indeterminate moderate compression deformity of T8. Groundglass opacities in the bilateral lung bases could represent infection, atelectasis or contusion. Otherwise no abnormalities in the abdomen or pelvis. Electronically Signed: Basil Galarza MD at 21:06 EDT ,
--- NOTE | 2022-10-03 18:51 | EX.ED.VIS.HA ---
HPI History of Present Illness Chief Complaint: Headache Informant: patient Narrative Narrative: Presenting here with multiple complaints. At noon nontraumatic severe pain right anterior neck radiating to her head causing flare of her migraines. Bright lights and noise bother this. No nausea or vomiting. She takes Tylenol only for her migraines. Intermittent spurts of pain in the neck that would worsen her headache. No previous similar symptoms in the past. Denies any recent injuries to the neck or manipulations. No fevers. In addition couple hours prior to arrival severe epigastric pain no vomiting or diarrhea. History of cholecystectomy. Family present reporting she has been bloating for 2 weeks. Decreased urine output however no dysuria or frequency. Allergies to codeine and morphine has tolerated Dilaudid in the past. Prior similar symptoms: No PFSH PFSH Medical History Kidney stone Lipoma of back Home Medications pantoprazole 40 mg tablet,delayed release 40 mg PO DAILY #30 tabs 10/03/22 [Rx Last Taken Unknown] Allergy/AdvReac Type Severity Reaction Status Date / Time codeine Allergy Hives Verified 10/29/21 15:30 Morpholine Analogues Allergy Hives Verified 10/29/21 15:30 morphine AdvReac Other Verified 10/29/21 15:30 Family History Father Alcoholism Grandmother Diabetes Liver disease Grandfather Myocardial infarction, Onset Age: 45 Daughter Thyroid disorder Surgical History History of cholecystectomy History of hysterectomy History of tonsillectomy Social History Smoking Status: Current every day smoker tobacco type: cigarettes alcohol intake: never substance use type: does not use what type of physical activity do you participate in: walking frequency: daily ROS ROS ED Constitutional Constitutional ED: Denies chills, fever(s) or sweats Eyes Eyes: Denies change in vision ENT ENT ED: Denies dysphagia or sore throat Cardiovascular Cardiovascular: Denies chest pain, leg edema, palpitations or racing heartbeat Respiratory/Chest Respiratory/Chest: Denies cough, dyspnea or dyspnea on exertion Gastrointestinal Gastrointestinal: Reports abdominal pain; Denies diarrhea, nausea or vomiting Genitourinary Genitourinary ED: Denies dysuria, hematuria or urinary frequency Musculoskeletal Musculoskeletal: Reports neck pain; Denies back pain or extremity pain Integumentary Denies rash or wounds Neurologic Neurologic: Reports headache(s); Denies paresthesias or weakness EXAM Physical Exam Const Vital Signs: 10/03/22 18:17 10/03/22 19:53 10/03/22 20:46 Temperature 97.5 F L Temperature Source Temporal Pulse Rate 69 64 70 Respiratory Rate 18 15 13 Blood Pressure 137/74 H 134/71 H 133/72 H Blood Pressure Mean 95 92 92 Pulse Ox 97 91 97 Oxygen Delivery Method Room Air Room Air Room Air Oxygen Flow Rate (L/min) 10/03/22 21:00 10/03/22 21:00 10/03/22 22:48 Temperature Temperature Source Pulse Rate 80 Respiratory Rate 16 Blood Pressure 125/65 H Blood Pressure Mean Pulse Ox 86 95 96 Oxygen Delivery Method Room Air Nasal Cannula Oxygen Flow Rate (L/min) 2 Positive well nourished and well developed Constitutional Narrative: In bed eyes closed General Appearance ED: well developed HEENT Reports moist mucous membranes normocephalic and atraumatic Eyes PERRL, EOMs intact bilaterally and conjunctivae normal General Eye ED: Yes normal appearance of both eyes Neck no lymphadenopathy and supple General: Negative for tenderness Chest Wall Chest: Negative for tenderness Resp normal respiratory effort and normal air movement Effort and Inspection: symmetric chest movement; Negative for respiratory distress Cardio regular rate, regular rhythm and no murmurs Peripheral Pulses: pulses 2+ throughout GI normal to inspection, nondistended, normoactive bowel sounds GI Narrative: Epigastric tenderness on exam. Palpation: Negative for guarding or rebound tenderness present Back/Spine no CVA tenderness and no thoracic nor lumbar tenderness Extremity normal to inspection General Extremety ED: Negative for edema or tenderness General Extremity: Negative for edema Neuro oriented x3, CN's II-XII intact bilaterally and no sensory deficits noted Sensorium / Orientation: awake and alert Skin no rashes or lesions noted and no wounds MDM MDM MDM Narrative Medical decision making narrative: Interventions / MDM: Differential diagnosis: Migraine headache, carotid dissection, gastritis, abdominal pain Diagnosis considered but do not suspect: No focal deficits, no meningismus for concerns of stroke or meningitis. My EKG interpretation: Sinus rate of 61, no ST or T wave changes. Imaging independently reviewed and interpreted by myself: CT angiogram head and neck: No vascular disease, incidental meningioma at the vertex. CT abdomen pelvis with p.o. and IV contrast: No acute findings. Chest x-ray: Negative. External documents reviewed: N/A Test considered but not ordered:N/A ED course: Patient remote complaints uncomfortable pain starting right anterior neck rating to her head. Also complains of epigastric abdominal pain. Due to anterior neck pain rating up discussed rule out dissection of the carotid with sudden onset of symptoms. IV established. Treated with IV Dilaudid, CT angiogram was ordered. Her abdominal labs returned normal. In the interim reported chest pains that developed, EKG was sinus rhythm. Her abdominal scan obtained return knowing no acute process increasing symptoms she was given GI cocktail with improvement. CT angiograms are negative except for incidental meningioma which was discussed with the patient. With her chest symptoms added troponin negative chest x-ray negative. She had transient dip in oxygen when she had distress, she was put on oxygen by nursing. This was removed and she maintained in the mid 90s. She is feeling better. She denied any blood in her stools or black tarry stools. Discussed gastritis symptoms for which she be placed on a PPI. She is given follow with neurology with her meningioma. She will follow-up with her PCP. Her headache was improved. Patient's heart score is 2. Re-evaluation: stable Disposition discussed with patient/family/significant other: Patient and family Case discussed with consulting clinician: N/A Lab Data Attestation: I reviewed the patient's lab results. Labs: Laboratory Results - last 24 hr 10/03/22 10/03/22 10/03/22 18:33 18:33 18:33 WBC 8.4 RBC 4.53 Hgb 13.3 Hct 39.2 MCV 86.5 MCH 29.4 MCHC 33.9 RDW Std Deviation 40.5 RDW Coeff of Dino 12.9 Plt Count 299 MPV 9.8 Immature Gran % (Auto) 0.200 Neut % (Auto) 55.2 Lymph % (Auto) 36.8 [place] % (Auto) 5.6 Eos % (Auto) 1.7 Baso % (Auto) 0.5 Absolute Neuts (auto) 4.6 Absolute Lymphs (auto) 3.08 Nucleated RBC % 0 PT 13.7 INR 1.1 APTT 29.4 Sodium 139 Potassium 3.6 Chloride 108 H Carbon Dioxide 25.0 Anion Gap 6 BUN 9 Creatinine 0.59 Estim Creat Clear Calc 103.79 Est GFR (MDRD) Af Amer 138 Est GFR (MDRD) Non-Af 114 BUN/Creatinine Ratio 15.2 Glucose 104 Calcium 9.4 Total Bilirubin 0.60 AST 14 L ALT 37 Alkaline Phosphatase 103 Troponin I High Sens Total Protein 7.5 Albumin 4.0 Globulin 3.5 Albumin/Globulin Ratio 1.1 Lipase 20 10/03/22 21:42 WBC RBC Hgb Hct MCV MCH MCHC RDW Std Deviation RDW Coeff of Dino Plt Count MPV Immature Gran % (Auto) Neut % (Auto) Lymph % (Auto) [place] % (Auto) Eos % (Auto) Baso % (Auto) Absolute Neuts (auto) Absolute Lymphs (auto) Nucleated RBC % PT INR APTT Sodium Potassium Chloride Carbon Dioxide Anion Gap BUN Creatinine Estim Creat Clear Calc Est GFR (MDRD) Af Amer Est GFR (MDRD) Non-Af BUN/Creatinine Ratio Glucose Calcium Total Bilirubin AST ALT Alkaline Phosphatase Troponin I High Sens 4 Total Protein Albumin Globulin Albumin/Globulin Ratio Lipase Radiography Diagnostic Testing: Clinical Impression(s) from Imaging Studies Head/Neck CTA 10/03/22 18:46 IMPRESSION: Probable small meningioma near the vertex on the left otherwise Normal CTA Head and neck with contrast. Pending Final Proof Editing ADDENDUM: 10/03/22 2888 IMPRESSION: Calcified meningioma otherwise Normal unenhanced CT scan of the brain. Electronically Signed: Helder Scott MD at 21:47 EDT , Abdomen/Pelvis CT 10/03/22 18:48 IMPRESSION: Age indeterminate moderate compression deformity of T8. Groundglass opacities in the bilateral lung bases could represent infection, atelectasis or contusion. Otherwise no abnormalities in the abdomen or pelvis. Electronically Signed: Basil Galarza MD at 21:06 EDT , Chest X-Ray 10/03/22 21:05 IMPRESSION: Bibasilar airspace disease Electronically Signed: Helder Scott MD at 21:34 EDT , Discharge Plan Triage Chief Complaint: Headache ED Provider: Porter Meneses Dx/Rx/DC Orders Clinical Impression: Headache, Abdominal pain, Meningioma, Gastritis, Atypical chest pain Instructions: Abdominal Pain, ED Gastritis (Adult), ED Headache Unspecified Prescriptions: New pantoprazole 40 mg tablet,delayed release (DR/EC) 40 mg PO DAILY Qty: 30 0RF Stand Alone Forms: ED Work / School Excuse Primary Care Provider: Care Physician,No Primary Referrals: Darin Blum MD [Non-Staff -Ordering Privileges] - 1-2 Weeks Alonso Larsen RESIDENT IN DIAGNOSTIC RADIOLOGY, RESIDENT IN DIAGNOSTIC RADIOLOGY-C [Non-Staff] - 3-5 Days Activity Restrictions/Additional Instructions: CT angiogram head and neck negative for vascular issues. Small meningioma noted. Follow-up with neurology for this. CT abdomen pelvis negative. Will be placed on pantoprazole for gastritis symptoms. Monitor for any black tarry stools. Your blood work is stable. Cardiac work-up negative. Follow-up with your doctor. Return if worsening symptoms. Disposition Disposition: Home, Self Care Discharge Date/Time: 10/03/22 22:55
[2022-10-03] MEDS: 0.9% Normal Saline 1,000 ML 1000 ML IV (18:55)
[2022-10-03] MEDS: HYDROmorphone 1 MG/ML Syringe IV (18:55)
[2022-10-03] MEDS: Ondansetron 4 MG/2 ML Vial IV (18:56)
[2022-10-03 18:57] VITALS: BMI 26.2
[2022-10-03 18:58] LABS: Absolute Lymphocyte Count 3.08 X10^3/uL (0.83-4.51); Absolute Neutrophil Count 4.6 X10^3/uL (2.0-7.7); Basophil# 0.04 X10^3/uL; Basophil% 0.5 % (0-1); Eosinophil# 0.14 X10^3/uL; Eosinophils% 1.7 % (0-5); Hematocrit 39.2 % (37-47); Hemoglobin 13.3 g/dL (12.0-15.0); Lymphocyte # 3.08 X10^3/ul (0.83-4.51); Lymphocyte % 36.8 % (19-41); Mean Corp Hgb Conc 33.9 g/dL (32-36); Mean Corpuscular Hgb 29.4 pg (27.0-32.0); Mean Corpuscular Volume 86.5 fL (81-99); Mean Platelet Vol. 9.8 fl (6.2-12.0); Monocyte# 0.47 X10^3/uL; Monocyte% 5.6 % (0-10); NRBC Flagged by Analyzer 0 % (0-5); Neutrophil # 4.63 X10^3/uL (2.7-7.7); Neutrophil % 55.2 % (47-70); Platelet Count 299 K/mm3 (150-450); RBC Distribution Width CV 12.9 % (11.6-14.6); RBC Distribution Width SD 40.5 fl (35.1-43.9); Red Blood Count 4.53 M/mm3 (4.2-5.4); White Blood Count 8.4 K/mm3 (4.4-11.0)
[2022-10-03 19:17] LABS: International Normalized Ratio 1.1; Partial Thromboplast Time 29.4 Seconds (24.1-36.2); Prothrombin Time (Protime)PT. 13.7 SECONDS (11.7-14.9)
[2022-10-03 19:18] LABS: ALB/GLOB Ratio 1.1 RATIO (0.9-2.4); AST(SGOT) 14 U/L (15-37); Alanine Aminotransfer ALT/SGPT 37 U/L (13-56); Alkaline Phosphatase 103 U/L (45-117); Anion Gap 6 (5-15); BUN 9 mg/dL (7-18); BUN/Creat Ratio 15.2 RATIO (10-20); Calcium,Total 9.4 mg/dL (8.5-10.1); Chloride 108 mmol/L (98-107); Creatinine, Serum 0.59 mg/dL (0.55-1.02); EST Glomerular Filtration Rate 114 mL/min (>60); Est Glom Filt Rate - Afr Amer 138 mL/min (>60); Estimated Creatinine Clearance 103.79 ml/min; Globulin 3.5 g/dL (2.2-4.2); Glucose 104 mg/dL (74-106); Lipase 20 U/L (13-75); Potassium 3.6 mmol/L (3.5-5.1); Protein, Total 7.5 g/dL (6.4-8.2); Sodium Level 139 mmol/L (136-145)
[2022-10-03] MEDS: HYDROmorphone 0.5 MG/0.5 ML SYRINGE IV (19:52)
[2022-10-03 19:53] VITALS: BP 134/71; PULSE 64; RESP 15; O2SAT 91
[2022-10-03 20:46] VITALS: BP 133/72; PULSE 70; RESP 13; O2SAT 97
--- NOTE | 2022-10-03 20:47 | EKG12_ITS ---
Test Reason : CP Blood Pressure : / mmHG Vent. Rate : 061 BPM Atrial Rate : 061 BPM P-R Int : 122 ms QRS Dur : 084 ms QT Int : 482 ms P-R-T Axes : 062 042 060 degrees QTc Int : 485 ms Normal sinus rhythm Prolonged QT Abnormal ECG Confirmed by ISABEL ADAMSON, ZI ([id number]), acquisition editor KANNAN MONROE ([id number]) on 10/06/2022 11:07:11 AM Referred By: INDIGO Confirmed By:ZI HALL MD
--- NOTE | 2022-10-03 20:47 | ED.RN ---
PT RETURNED TO ROOM FROM CT. C/O CHEST AND LEFT SIDED NECK PAIN. PLACED ON MONITOR. NSR. VITALS: 133/72, 65, 13, 94 RA. CALLED FOR EKG
[2022-10-03 21:00] VITALS: O2SAT 86; O2SAT 95
--- NOTE | 2022-10-03 21:05 | RAD_ITS ---
STUDY: X-RAY CHEST REASON FOR EXAM: Female, 47 years old. sob TECHNIQUE: Single frontal view of the chest. COMPARISON: March 09, 2020 FINDINGS: Bibasilar airspace disease. There is no demonstrated pleural abnormality. Normal size heart. Normal mediastinum and elise. Normal visualized pulmonary arteries. Normal visualized aortic arch and descending thoracic aorta. Normal visualized thoracic spine. Normal visualized ribs, clavicles, and shoulders. There is no demonstrated abnormality of the visualized soft tissue structures of the upper abdomen. RAD/Chest 1 View (Portable) IMPRESSION: Bibasilar airspace disease Electronically Signed: Helder Scott MD at 21:34 EDT ,
[2022-10-03] MEDS: Mag Hydrox/Al Hydrox/Simeth 30 ML UDC PO (21:16)
[2022-10-03 22:13] LABS: Troponin-I HS (w/2H Reflex) 4 pg/mL (3.0-54.0)
[2022-10-03 22:48] VITALS: BP 125/65; PULSE 80; RESP 16; O2SAT 96
[2022-10-03 23:53] LABS: Reflex Troponin-HS? (from REC) Y
== END 2022-10-03 22:55 | disposition home or self-care (01) ==
PROVIDERS: Emergency Provider Emergency Medicine; Visit Provider Emergency Medicine
DX: R51.9 Headache, unspecified (principal); D32.9 Benign neoplasm of meninges, unspecified; R10.13 Epigastric pain; K29.70 Gastritis, unspecified, without bleeding; R07.89 Other chest pain; F17.210 Nicotine dependence, cigarettes, uncomplicated
CPT/HCPCS: 70496; 70498; 71045; 74177; 80053; 83690; 84484; 85025; 85610; 85730; 93005; 96361; 96374; 96375; 96376; 99284; J7030; Q9967; A4216; J2405